=== PATIENT | male | born 1980 | race Caucasian/White ===

== ENCOUNTER 2022-08-13 19:22 | Emergency (ER) | payer BC ==
[2022-08-13 21:06] LABS: CORONAVIRUS COVID-19 NAA NEGATIVE (NEGATIVE)
== END 2022-08-13 21:31 | disposition home or self-care (01) ==
LOC: JP.ED 19:22 → MERGE 19:22 → JP.ED 21:31
DX: J10.1 Influenza due to other identified influenza virus with other respiratory manifestations (principal); Z79.899 Other long term (current) drug therapy; Z20.822 Contact with and (suspected) exposure to COVID-19
CPT/HCPCS: 0241U; 99284